=== PATIENT | female | born 1990 | race Two or more races ===

== ENCOUNTER 2019-03-11 11:17 | Outpatient (CLI) | payer OTHER | END 2019-03-11 11:27 | disposition home or self-care (01) | LOC: SONOGRAMA 11:17 | DX: N60.19 Diffuse cystic mastopathy of unspecified breast (principal); N63.10 Unspecified lump in the right breast, unspecified quadrant; N63.20 Unspecified lump in the left breast, unspecified quadrant ==

== ENCOUNTER 2020-01-13 14:07 | Outpatient (CLI) | payer OTHER | END 2020-01-13 14:40 | disposition home or self-care (01) | LOC: SONOGRAMA 14:07 | DX: N63.10 Unspecified lump in the right breast, unspecified quadrant (principal); N63.20 Unspecified lump in the left breast, unspecified quadrant ==

== ENCOUNTER → 2023-11-18 | Emergency (ER) | payer OTHER ==
[~2023-11-18] VITALS: Ht 165.1 cm; Wt 61.7 kg
[~2023-11-18] MED LIST: PRENA1 CHEW TA1.4 MG
== END | disposition left against medical advice (07) ==
LOC: ER 03:45
DX: Z53.21 Procedure and treatment not carried out due to patient leaving prior to being seen by health care provider (principal)

== ENCOUNTER 2023-12-25 07:06 | Outpatient (CLI) | payer OTHER | END 2023-12-25 07:12 | disposition home or self-care (01) | LOC: SONOGRAMA 07:06 | PROVIDERS: ATTEND Obstetrics & Gynecology | DX: R10.2 Pelvic and perineal pain (principal) ==